=== PATIENT | male | born 2005 | race Caucasian/White ===

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

== ENCOUNTER 2024-12-15 08:02 | Day surgery (SDC) | payer BC ==
[~2024-12-15 08:02] MED LIST: Sodium Chloride 0.9% 10 ML Syringe FLUSH PRN; Sodium Chloride 0.9% 10 ML Syringe FLUSH SCH
[2024-12-15] MEDS ORDERED: Propofol 200 MG/20 ML SDV ONE ×4 (08:08→08:50)
[2024-12-15] MEDS ORDERED: Lidocaine 2% 5 ML SDV ONE (08:09)
[2024-12-15] MEDS: Lactated Ringers 1,000 ML IV SCH (08:10)
== END 2024-12-15 09:50 | disposition home or self-care (01) ==
LOC: JD.SDS 08:02
PROVIDERS: ATTEND Surgery
DX: K21.9 Gastro-esophageal reflux disease without esophagitis (principal); K31.819 Angiodysplasia of stomach and duodenum without bleeding; Z79.899 Other long term (current) drug therapy
CPT/HCPCS: 00731; J2003; J2704; J7120